=== PATIENT | male | born 1990 | race Caucasian/White ===

== ENCOUNTER 2022-08-04 12:18 | Emergency (ER) | payer BC, SELFPAY ==
--- NOTE | ~2022-08-04 | US_ITS ---
EXAMINATION: US abdomen limited DATE: 08/04/2022 14:04 INDICATION: epigastric/RUQ pain TECHNIQUE: Multiple grayscale and Doppler ultrasound images of limited portions of the abdomen were o btained. COMPARISON: CT abdomen and pelvis 04/19/2017. FINDINGS: Limited visualization of the pancreas due to obscuration by bowel gas. The liver is normal with normal echogenicity and echotexture. No surface nodularity. Normal hepatopetal flow in the main portal vein. The gallbladder is normal with no abnormal wall thickening, pericholecystic fluid or sto pearl. The common bile duct measures 3 mm. There was no sonographic Otto sign. IMPRESSION: Limited visualization of the pancreas, otherwise normal limited abdominal ultrasound findings. Reviewed, dictated and finalized at location K. REPAIRER BUS IMPRESSION: Limited visualization of the pancreas, otherwise normal limited abdominal ultra sound findings.
[2022-08-04 12:23] VITALS: BP 142/83; PULSE 79; RESP 16; TEMP 36.6; O2SAT 100
[2022-08-04 12:37] LABS: Basophils Absolute Auto 0.1 K/mm3 (0.0-0.1); Basophils Percent Auto 0.5 % (0.2-1.2); Eosinophils Absolute Auto 0.1 K/mm3 (0-0.3); Eosinophils Percent Auto 0.7 % (0-4.4); Hematocrit 49.7 % (42.0-52.0); Hemoglobin 16.4 g/dL (14.0-18.0); Immature Granulocyte Absolute 0.03 K/mm3 (0.00-0.031); Immature Granulocyte Percent A 0.2 % (0-0.5); Lymphocytes Absolute Auto 2.34 K/mm3 (0.9-3.2); Lymphocytes Percent Auto 19.1 % (18.3-44.2); Mean Corpuscular Hemoglobin 29.4 pg (26-34); Mean Corpuscular Volume 89.2 fl (80-100); Mean Platelet Volume 8.8 fl (7.4-10.4); Monocytes Absolute Auto 1.1 K/mm3 (0.1-0.6); Monocytes Percent Auto 8.6 % (2.6-8.5); Neutrophils Absolute Auto 8.7 K/mm3 (1.3-6.7); Neutrophils Percent Auto 70.9 % (45.5-73.1); Platelet Count Result 243 k/mm3 (150-375); Red Blood Count 5.57 M/mm3 (4.6-6.20); Red Cell Distribution Width 11.9 % (11.5-14.5); White Blood Count 12.3 K/mm3 (4.5-10.0)
--- NOTE | 2022-08-04 12:43 | ED.ABDPAIN ---
HPI - Abdominal Pain General Chief Complaint: Abdominal Pain Stated Complaint: abd pain, n/v Time Seen by Provider: 08/04/22 12:34 History of Present Illness HPI narrative: Patient is a 32-year-old male who is previously healthy here for evaluation of nausea, vomiting and epigastric discomfort over the past year. The pain is present in his epigastric region and occasionally moves to his right upper quadrant and his back. Patient states that he has had intermittent episodes of these symptoms coming on at random over the past year, lasting for several days at a time before resolving without intervention. He has never seen a doctor for these issues, but today he decided to be evaluated due to longevity of the symptoms. Additionally had an episode of vomiting green bile yesterday which is abnormal for him. He denies any chest pain, shortness of breath, fevers, chills, diarrhea or constipation. No sick contacts. He denies significant greasy or fatty foods in his diet. He does smoke marijuana occasionally but does not believe that his vomiting is related to the marijuana use. Denies any alcohol use or smoking. Related Data Allergies Allergy/AdvReac Type Severity Reaction Status Date / Time No Known Allergies Allergy Mild Verified 04/19/17 09:08 Review of Systems Review of Systems: Gen.: Denies fevers or chills Eyes: Denies eye pain or visual change ENT: Denies congestion Respiratory: Denies shortness of breath or cough CV: Denies chest pain or palpitations GI: Reports abdominal pain, nausea and vomiting : denies burning, urgency, frequency or hematuria Musculoskeletal: Denies back pain or muscle pain Neuro: Denies numbness, tingling, weakness or focal weakness Skin: Denies rash Except as documented, all other systems reviewed and negative Exam Narrative: APPEARANCE: Well appearing, no pain in distress, well-nourished. Head: Normocephalic and atraumatic. EYES: PERRLA/EOMI, conjunctivae clear NOSE: No nasal drainage EARS: External ear normal in appearance THROAT: Oropharynx is clear. Mucous membranes are moist. NECK: Supple. No adenopathy, no masses. RESPIRATORY: Airway patent, respirations nonlabored. Clear to auscultation bilaterally, no rales, rhonchi, wheezing. CARDIOVASCULAR: Regular rate and rhythm without murmurs, rubs, or gallops. ABDOMINAL: Tenderness to palpation in the epigastric region. Normoactive bowel sounds. Soft, nondistended. No rebound tenderness or guarding. MUSCULOSKELETAL: Extremities are warm and well-perfused. Moves all extremities well. No edema. NEURO: Normal speech. No focal neurologic deficits. SKIN: Skin is warm and dry. No rashes. PSYCHIATRIC: Normal affect/mood. Course Vital Signs Vital signs: Vital Signs Temperature 97.8 F 08/04/22 12:23 Pulse Rate 79 08/04/22 12:23 Respiratory Rate 16 08/04/22 12:23 Blood Pressure 142/83 H 08/04/22 12:23 Pulse Oximetry 100 08/04/22 12:23 Oxygen Delivery Room Air 08/04/22 12:23 Temperature 97.8 F 08/04/22 12:23 Pulse Rate 79 08/04/22 12:23 Respiratory Rate 16 08/04/22 12:23 Blood Pressure 142/83 H 08/04/22 12:23 Pulse Oximetry 100 08/04/22 12:23 Oxygen Delivery Room Air 08/04/22 12:23 MDM - Abdominal Pain MDM Narrative Medical decision making narrative: 32-year-old male here for evaluation of intermittent episodes of nausea, vomiting and epigastric pain over the past here, presenting today due to longevity of symptoms. Patient is nontoxic in appearance, has slight epigastric abdominal discomfort on exam with no rebound tenderness or guarding. Vital signs are normal. He has a slight elevation in his white blood cell count to 12.3, may be reactive due to vomiting. LFTs are normal. T bili is normal and lipase is normal. Right upper quadrant ultrasound reveals no gallbladder pathology, pancreas is not entirely visualized, but with a normal lipase this makes pancreatitis very unlikely. UA unremarkable. Patient w
[2022-08-04 12:49] LABS: Alanine Aminotransferase 21 U/L (6-50); Albumin Level 4.6 g/dL (3.5-5.1); Alkaline Phosphatase 64 U/L (38-126); Anion Gap 9 mmol/L (8-16); Aspartate Amino Transferase 24 U/L (17-59); Bilirubin,Total 0.7 mg/dL (0.2-1.3); Blood Urea Nitrogen 21 mg/dL (9-20); Calcium 9.4 mg/dL (8.4-10.2); Carbon Dioxide 31 mmol/L (22-30); Chloride 96 mmol/L (98-107); Estimated CRCL calculation 109 ml/min; Estimated Glomerular Filt Rate > 60; Glucose 103 mg/dL (65-110); Lipase 32 U/L (23-300); Potassium 3.7 mmol/L (3.4-5.0); Sodium 136 mmol/L (137-145)
[2022-08-04 13:28] LABS: Appearance Urine Clear (Clear); Bilirubin Urine Negative (Negative); Blood Urine Negative (Negative); Color Urine Yellow (Yellow); Glucose Urine UA Negative (Negative); Ketones Urine Negative (Negative); Leukocyte Esterase Ur Negative LEU/UL (Negative); Nitrate Urine Negative (Negative); Protein Urine Negative (Negative); Specific Grav Ur 1.025 (1.001-1.035); Urobilinogen Urine 0.2 mg/dL (<2.0); pH Urine 5.5 (5.0-9.0)
[2022-08-04 13:52] LABS: Add Urine Microscopic? NO
[2022-08-04] MEDS: FAMOTIDINE 20 MG/2 ML VIAL IV PUSH (14:04)
[2022-08-04] MEDS: ONDANSETRON INJ 4 MG/2 ML VIAL IV PUSH (14:04)
[2022-08-04] MEDS: LACTATED RINGERS 1,000 ML 999 ML IV CONT (14:10)
== END 2022-08-04 14:52 | disposition home or self-care (01) ==
PROVIDERS: Emergency Medicine; Emergency Provider Physician Assistant
DX: K29.70 Gastritis, unspecified, without bleeding (principal)
CPT/HCPCS: 36415; 76705; 80053; 81003; 83690; 85025; 96361; 96374; 96375; 99284; J2405; J7120

== ENCOUNTER 2022-11-03 12:00 | Emergency (ER) | payer BC, SELFPAY ==
--- NOTE | ~2022-11-03 | XR_ITS ---
Portable chest x-ray Comparison: 04/19/2017 Clinical History: Nausea and vomiting Findings: Lungs are clear, without focal consolidation or pleural effusion. Cardiomediastinal silho uette is stable. Bones and soft tissues are unremarkable. Impression: Normal chest. Reviewed, dictated and finalized at [facility]. Impression: Normal chest.
--- NOTE | ~2022-11-03 | CT_ITS ---
CT of the Abdomen and Pelvis: Indication: Abdominal pain Technique: 2.5 mm axial scans were obtained through the abdomen and pelvis following intravenous adm inistration of 100 cc of Omnipaque 350. Dose reduction technique was used on this scan by utilizing a utomated exposure control and iterative reconstruction technique. The dose-length product (DLP) was 7 59.44 mGy-cm. COMPARISON: 04/19/2017 Findings: Scans through the lung bases are unremarkable. The liver, spleen, pancreas, gallbladder, adrenals and kidneys are within normal limits. No evidence of aortic aneurysm. No lymphadenopathy. No bowel obstruction or bowel wall thickening. There is no evidence to suggest acute appendicitis. Images through the pelvis were performed. Urinary bladder unremarkable. No pelvic mass seen. No ascit es. Impression: No significant abnormalities seen. Reviewed, dictated and finalized at [facility]. Impression: No significant abnormalities seen.
[2022-11-03 12:15] VITALS: BP 132/91; PULSE 78; RESP 16; TEMP 36.1; O2SAT 98
[2022-11-03 12:35] LABS: Basophils Percent Auto 0.3 % (0.2-1.2); Eosinophils Percent Auto 0.2 % (0-4.4); Hematocrit 48.1 % (42.0-52.0); Hemoglobin 16.4 g/dL (14.0-18.0); Immature Granulocyte Absolute 0.04 K/mm3 (0.00-0.031); Immature Granulocyte Percent A 0.3 % (0-0.5); Lymphocytes Absolute Auto 1.91 K/mm3 (0.9-3.2); Lymphocytes Percent Auto 13.6 % (18.3-44.2); Mean Corpuscular HGB Conc 34.1 g/dl (32-36); Mean Corpuscular Hemoglobin 29.2 pg (26-34); Mean Corpuscular Volume 85.6 fl (80-100); Mean Platelet Volume 8.9 fl (7.4-10.4); Monocytes Absolute Auto 0.9 K/mm3 (0.1-0.6); Monocytes Percent Auto 6.4 % (2.6-8.5); Neutrophils Absolute Auto 11.2 K/mm3 (1.3-6.7); Neutrophils Percent Auto 79.2 % (45.5-73.1); Platelet Count Result 301 k/mm3 (150-375); Red Blood Count 5.62 M/mm3 (4.6-6.20); Red Cell Distribution Width 12.4 % (11.5-14.5); White Blood Count 14.1 K/mm3 (4.5-10.0)
[2022-11-03 12:46] LABS: Alanine Aminotransferase 23 U/L (6-50); Alkaline Phosphatase 65 U/L (38-126); Anion Gap 7 mmol/L (8-16); Aspartate Amino Transferase 28 U/L (17-59); Blood Urea Nitrogen 19 mg/dL (9-20); Calcium 9.7 mg/dL (8.4-10.2); Carbon Dioxide 32 mmol/L (22-30); Chloride 96 mmol/L (98-107); Estimated CRCL calculation 123 ml/min; Estimated Glomerular Filt Rate > 60; Glucose 116 mg/dL (65-110); Lipase 24 U/L (23-300); Potassium 3.8 mmol/L (3.4-5.0); Sodium 135 mmol/L (137-145)
[2022-11-03] MEDS: HALOPERIDOL LACTATE 5 MG/ML VIAL 2.5 MG IM (12:47)
[2022-11-03 12:59] LABS: Appearance Urine Clear (Clear); Bacteria Urine None Seen /hpf; Bilirubin Urine Negative (Negative); Blood Urine Negative (Negative); Color Urine Dark Yellow (Yellow); Glucose Urine UA Negative (Negative); Hyaline Casts Urine Present /lpf; Ketones Urine 1+ mg/dL (Negative); Leukocyte Esterase Ur Negative LEU/UL (Negative); Nitrate Urine Negative (Negative); Protein Urine Trace mg/dL (Negative); RBC Urine 0-2 /hpf (0-2); Specific Grav Ur 1.027 (1.001-1.035); Squamous Epithelial Cell Urine Few /hpf (Few); WBC Urine 21-50 /hpf; pH Urine 5.5 (5.0-9.0)
[2022-11-03 13:00] VITALS: BP 128/74; PULSE 76; RESP 16; TEMP 36.8; O2SAT 98
[2022-11-03 13:02] LABS: Add Urine Microscopic? YES
[2022-11-03 14:00] VITALS: BP 124/76; PULSE 78; RESP 16; TEMP 36.7; O2SAT 99
[2022-11-03] MEDS: FAMOTIDINE 20 MG TABLET PO (14:08)
[2022-11-03] MEDS: MAG HYDROX/AL HYDROX/SIMETH 30 ML UDC PO (14:09)
--- NOTE | 2022-11-03 18:26 | ED.NAVMDI ---
HPI - Nausea/Vomiting/Diarrhea General Chief complaint: Nausea/Vomiting/Diarrhea Stated complaint: vomiting x 1 year Time Seen by Provider: 11/03/22 12:21 History of Present Illness HPI Narrative: Patient states that for the past year, he has had multiple episodes of nausea and vomiting that happens about once a month, where he feels the need to vomit uncontrollably, and has crampy uncomfortable pain in the epigastric abdomen. He does state that hot showers help, and he is a daily marijuana user. Has been to the ER before for this and has not seen a GI doctor yet. Related Data Allergies Allergy/AdvReac Type Severity Reaction Status Date / Time No Known Allergies Allergy Mild Verified 04/19/17 09:08 Review of Systems Review of Systems: CONST: No fever. HEENT: No sore throat C/V: No chest pain RESP: No cough GI: Reports abdominal pain, nausea, vomiting : No dysuria M/S: No joint pain. SKIN: No rash. NEURO: [No headache or focal numbness or weakness] PSYCH: [No depression] Exam Narrative: EXAMINATION OF ORGAN SYSTEMS/BODY AREAS: Constitutional: Vital signs per nursing GENERAL:[No acute distress, non-toxic appearing.] HEAD: Normal with no signs of head trauma. EYES: EOMI, conjunctiva normal ENT: Hearing grossly intact LUNGS: Nonlabored breathing. HEART: [Regular rate and rhythm] ABD: [Soft], [nontender to palpation] EXT: Normal range of motion SKIN: [No rashes or lesions.] NEURO: [Alert and oriented x 3. No gross focal sensory or strength deficits.] PSYCH: Normal affect Course Vital Signs Vital signs: Vital Signs Temperature 97.0 F L 11/03/22 12:15 Pulse Rate 78 11/03/22 12:15 Respiratory Rate 16 11/03/22 12:15 Blood Pressure 132/91 H 11/03/22 12:15 Pulse Oximetry 98 11/03/22 12:15 Temperature 98.0 F 11/03/22 14:00 Pulse Rate 78 11/03/22 14:00 Respiratory Rate 16 11/03/22 14:00 Blood Pressure 124/76 11/03/22 14:00 Pulse Oximetry 99 11/03/22 14:00 MDM - Nausea/Vomiting/Diarrhea MDM Narrative Medical decision making narrative: Electronic medical record was reviewed. Patient presented to the ED with complaint of [abdominal pain and vomiting]. Vitals [were within acceptable limits]. Physical exam revealed soft, nontender abdomen. Based on the patient's history and physical exam, my differential includes but is not limited to [gastritis, gastroenteritis, cholecystitis, pancreatitis, hernia, chronic vomiting syndrome, cannabinoid hyperemesis syndrome]. [IV access was established by nursing staff. Patient was given Haldol, Maalox, famotidine]. CBC, BMP, lipase, LFTs, bilirubin and alk phos were obtained. Labs were pertinent for elevated WBCs. Urine labs were ordered per protocol though patient denied any dysuria and there is no bacteria in urine so I have low concern for UTI, patient is monogamous with his in the room. They did request imaging of his abdomen/pelvis, and the also wanted me to get an x-ray of his chest because she states that when he vomits, the sound seems to come from his chest. [CT-abdomen is unremarkable for acute intra-abdominal process.] Chest x-ray interpreted independently by myself does not show any acute abnormality. There were no witnessed episodes of vomiting in the emergency department. They are not complaining of any new abdominal pain. Repeat examination did not show any significant guarding or rebound. No new tenderness. 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 The patient was given strict return precautions, if they are to develop any worsening abdominal pain, vomiting, or blood in the vomit they are to return to the emergency department immediately. Patient verbally acknowledges understanding these directions. [The patient was informed of the above diagnostic test findings.] They will be discharged home [with prescriptions]. They were advised to follow-up with GI in 2 days. The patient feels that this is approp
== END 2022-11-03 14:23 | disposition home or self-care (01) ==
PROVIDERS: Emergency Medicine; Emergency Provider Emergency Medicine
DX: R11.2 Nausea with vomiting, unspecified (principal)
CPT/HCPCS: 36415; 71045; 74177; 80053; 81001; 83690; 85025; 87086; 96372; 99284; A9270; J1630; Q9967

== ENCOUNTER 2023-05-12 16:34 | Emergency (ER) | payer BC, SELFPAY ==
--- NOTE | ~2023-05-12 | CT_ITS ---
EXAMINATION: CT brain wo con INDICATION: Seizure-like activity COMPARISON: None TECHNIQUE: Standard unenhanced head CT. The dose-length product (DLP) was 605.33 mGy-cm. The mA was a djusted according to patient size. Iterative reconstruction technique was employed. FINDINGS: No intracranial hemorrhage, acute infarction, or abnormal mass lesion. The ventricles are n ormal. No abnormal mass effect or midline shift. The elias-white matter differentiation is normal. The basal cisterns are patent. The orbits are normal. The paranasal sinuses, mastoids and calvarium are normal. IMPRESSION: 1. No acute intracranial abnormality. Reviewed, dictated and finalized at location B. NICAL ACCOUNT REPRESENTATIVE
[2023-05-12 16:33] VITALS: BP 118/82; PULSE 104; RESP 20; TEMP 36.8; O2SAT 98
--- NOTE | 2023-05-12 16:47 | ECG_ITS ---
Measurements Intervals [place] Rate: 77 P: 61 UT: 125 QRS: 61 QRSD: 88 T: 36 QT: 345 QTc: 392 Interpretive Statements SINUS RHYTHM INCOMPLETE RIGHT BUNDLE BRANCH BLOCK BORDERLINE ECG NO PREVIOUS ECG AVAILABLE FOR COMPARISON Electronically Signed On 05-13-2023 12:53:49 [employer] by Alec Martines D.O.
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
[2023-05-12] MEDS: TETANUS,DIPHTHERIA,AC PERTUSSIS ADULT (0.5 ML) BOOSTRIX IM (17:16)
[2023-05-12] MEDS: SODIUM CHLORIDE 0.9% IV 1,000 ML 999 ML IV CONT (17:17)
[2023-05-12 17:32] LABS: Basophils Absolute Auto 0.1 K/mm3 (0.0-0.1); Basophils Percent Auto 0.6 % (0.2-1.2); Eosinophils Absolute Auto 0.4 K/mm3 (0-0.3); Eosinophils Percent Auto 3.8 % (0-4.4); Hematocrit 42.5 % (42.0-52.0); Hemoglobin 14.3 g/dL (14.0-18.0); Immature Granulocyte Absolute 0.04 K/mm3 (0.00-0.031); Immature Granulocyte Percent A 0.4 % (0-0.5); Lymphocytes Absolute Auto 1.64 K/mm3 (0.9-3.2); Lymphocytes Percent Auto 17.6 % (18.3-44.2); Mean Corpuscular HGB Conc 33.6 g/dl (32-36); Mean Corpuscular Hemoglobin 29.4 pg (26-34); Mean Corpuscular Volume 87.3 fl (80-100); Mean Platelet Volume 8.7 fl (7.4-10.4); Monocytes Percent Auto 10.3 % (2.6-8.5); Neutrophils Absolute Auto 6.3 K/mm3 (1.3-6.7); Neutrophils Percent Auto 67.3 % (45.5-73.1); Platelet Count Result 260 k/mm3 (150-375); Red Blood Count 4.87 M/mm3 (4.6-6.20); Red Cell Distribution Width 12.7 % (11.5-14.5); White Blood Count 9.3 K/mm3 (4.5-10.0)
[2023-05-12 17:38] LABS: Appearance Urine Clear (Clear); Bacteria Urine None Seen /hpf; Bilirubin Urine Negative (Negative); Blood Urine Negative (Negative); Color Urine Yellow (Yellow); Glucose Urine UA Negative (Negative); Ketones Urine Negative (Negative); Leukocyte Esterase Ur Negative LEU/UL (Negative); Nitrate Urine Negative (Negative); Protein Urine 1+ mg/dL (Negative); RBC Urine 0-2 /hpf (0-2); Squamous Epithelial Cell Urine None seen /hpf (Few); Urobilinogen Urine 0.2 mg/dL (<2.0); WBC Urine 0-5 /hpf
[2023-05-12 17:42] LABS: Anion Gap 4 mmol/L (8-16); Blood Urea Nitrogen 10 mg/dL (9-20); Calcium 9.2 mg/dL (8.4-10.2); Carbon Dioxide 33 mmol/L (22-30); Chloride 100 mmol/L (98-107); Creatine Kinase 332 U/L (55-170); Estimated CRCL calculation 117 ml/min; Estimated Glomerular Filt Rate > 60; Glucose 95 mg/dL (65-110); Potassium 3.1 mmol/L (3.4-5.0); Sodium 137 mmol/L (137-145)
[2023-05-12 17:50] LABS: Amphetamine Screen Urine Negative (Negative); Barbiturate Screen Urine Negative (Negative); Benzodiazepines Screen Urine Positive (Negative); Cannabinoid Screen Urine Positive (Negative); Cocaine Screen Urine Negative (Negative); Methadone Screen Urine Negative (Negative); Opiate Screen Urine Negative (Negative); Phencyclidine Screen Urine Negative (Negative)
[2023-05-12 18:10] LABS: Add Urine Microscopic? YES
[2023-05-12] MEDS: POTASSIUM/PHOSPHORUS/SODIUM 1.5 GM PACKET 1 PACKET PO (19:02)
[2023-05-12 19:21] VITALS: BP 119/85; PULSE 81; RESP 17; O2SAT 98
== END 2023-05-12 19:21 | disposition home or self-care (01) ==
PROVIDERS: Emergency Provider Student in an Organized Health Care Education/Training Program
DX: R56.9 Unspecified convulsions (principal); E87.6 Hypokalemia; R74.8 Abnormal levels of other serum enzymes; F12.90 Cannabis use, unspecified, uncomplicated; S00.03XA Contusion of scalp, initial encounter; S00.01XA Abrasion of scalp, initial encounter; Z23 Encounter for immunization; I45.10 Unspecified right bundle-branch block; W18.39XA Other fall on same level, initial encounter
CPT/HCPCS: 36415; 70450; 80048; 80307; 81001; 82550; 85025; 90471; 90715; 93005; 96360; 99284; A9270; J7030

== ENCOUNTER 2023-06-15 08:59 | Emergency (ER) | payer BC, SELFPAY ==
[2023-06-15] VITALS (8 sets, daily range): BP systolic 115–150; BP diastolic 59–85; PULSE 53–106; RESP 16–18; TEMP 36.4; O2SAT 99–100
--- NOTE | ~2023-06-15 | CT_ITS ---
EXAMINATION: CT abdomen pelvis w con DATE: 06/15/2023 11:57 INDICATION: Abdominal pain. Vomiting. TECHNIQUE: Computed tomography (CT) of the abdomen and pelvis was performed with 100 mL Omnipaque 350 intravenous contrast. Automated exposure control and iterative reconstruction technique were employe d. The dose-length product was 384.45 mGy-cm. COMPARISON: CT abdomen and pelvis 11/03/2022 FINDINGS: The visualized portions of the lung bases are clear without pneumonia or pleural effusion. The heart size is normal. No pericardial effusion. The liver, gallbladder, spleen, pancreas, adrenal glands, and kidneys are normal. There are no dilated loops of bowel. The appendix is normal. There ar e no pathologically enlarged lymph nodes. There is no free intraperitoneal fluid. There is an umbilic al hernia containing fat. There is mild thoracic and lumbar spondylosis. IMPRESSION: 1. Umbilical hernia containing fat. Reviewed, dictated and finalized at location A. CIATE SCIENTIST
[2023-06-15 11:11] LABS: Basophils Absolute Auto 0.1 K/mm3 (0.0-0.1); Basophils Percent Auto 0.3 % (0.2-1.2); Eosinophils Percent Auto 0.1 % (0-4.4); Hematocrit 46.3 % (42.0-52.0); Hemoglobin 15.6 g/dL (14.0-18.0); Immature Granulocyte Absolute 0.07 K/mm3 (0.00-0.031); Immature Granulocyte Percent A 0.4 % (0-0.5); Lymphocytes Absolute Auto 1.18 K/mm3 (0.9-3.2); Lymphocytes Percent Auto 7.2 % (18.3-44.2); Mean Corpuscular HGB Conc 33.7 g/dl (32-36); Mean Corpuscular Hemoglobin 29.1 pg (26-34); Mean Corpuscular Volume 86.4 fl (80-100); Mean Platelet Volume 9.1 fl (7.4-10.4); Monocytes Absolute Auto 0.5 K/mm3 (0.1-0.6); Monocytes Percent Auto 3.3 % (2.6-8.5); Neutrophils Absolute Auto 14.6 K/mm3 (1.3-6.7); Neutrophils Percent Auto 88.7 % (45.5-73.1); Platelet Count Result 311 k/mm3 (150-375); Red Blood Count 5.36 M/mm3 (4.6-6.20); White Blood Count 16.5 K/mm3 (4.5-10.0)
[2023-06-15 11:20] LABS: Alanine Aminotransferase 21 U/L (6-50); Albumin Level 4.8 g/dL (3.5-5.1); Alkaline Phosphatase 68 U/L (38-126); Anion Gap 11 mmol/L (8-16); Aspartate Amino Transferase 27 U/L (17-59); Bilirubin,Total 0.9 mg/dL (0.2-1.3); Blood Urea Nitrogen 23 mg/dL (9-20); Carbon Dioxide 27 mmol/L (22-30); Chloride 100 mmol/L (98-107); Estimated CRCL calculation 118 ml/min; Estimated Glomerular Filt Rate > 60; Glucose 160 mg/dL (65-110); Lipase 40 U/L (23-300); Potassium 3.6 mmol/L (3.4-5.0); Sodium 138 mmol/L (137-145)
[2023-06-15] MEDS: METOCLOPRAMIDE HCL INJ 10 MG/2 ML VIAL IV PUSH (11:22)
[2023-06-15] MEDS: SODIUM CHLORIDE 0.9% IV 1,000 ML 999 ML IV CONT ×2 (11:22→12:53)
[2023-06-15] MEDS: diphenhydrAMINE HCl INJ 50 MG/ML VIAL 25 MG IV PUSH (11:24)
[2023-06-15] MEDS: FAMOTIDINE 20 MG/2 ML VIAL IV PUSH (11:26)
--- NOTE | 2023-06-15 11:38 | ED.NAVMDI ---
HPI - Nausea/Vomiting/Diarrhea General Chief complaint: Nausea/Vomiting/Diarrhea Stated complaint: vomiting Time Seen by Provider: 06/15/23 10:59 Source: patient Mode of arrival: ambulatory Limitations: no limitations History of Present Illness HPI Narrative: This is a 33-year-old male that presents to the emergency department for nausea and vomiting. Associated with mid abdominal discomfort. This has been ongoing over the last couple of days. 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 He took Zofran and and a PPI this morning with little relief. Denies fevers or diarrhea. Related Data Allergies Allergy/AdvReac Type Severity Reaction Status Date / Time No Known Allergies Allergy Mild Verified 05/12/23 17:16 Review of Systems Review of Systems: CONSTITUTIONAL: Denies fever GASTROINTESTINAL: Reports abdominal pain, nausea, vomiting. Denies diarrhea. GENITOURINARY: Denies dysuria or hematuria. All systems reviewed & are unremarkable except as noted in HPI and below PMFSH Past Medical History Medical History (Updated 06/15/23 @ 14:33 by Wilma Fish PA-C) Concussion Surgical History Surgical History (Updated 05/14/23 @ 07:05 by Beatriz Rodriguez MD) History of esophagogastroduodenoscopy (EGD) Social History Social History (Updated 05/14/23 @ 07:08 by Beatriz Rodriguez MD) Alcohol intake: never Substance use type: marijuana Other substance usage details: Denies illicit drugs Living arrangements: with family Additional living arrangements comments: Occupation/Education: occupation Additional occupation/education comments: construction Exam Narrative: GENERAL: Well-appearing, well-nourished, and in no acute distress. HEAD: Normocephalic, atraumatic. EYES: EOMI. ENT: Mucous membranes moist. CHEST: Clear to auscultation. No respiratory distress. No wheezes rales or rhonchi HEART: Regular rate and rhythm. No murmur heard. Normal peripheral pulses. ABDOMEN: Soft, nondistended, normal active bowel sounds. Tender to palpation in the epigastrium, without guarding EXTREMITIES: Normal range of motion. No edema. SKIN: Warm, dry, no rash. NEURO: No focal deficits. Alert and oriented x3. PSYCH: Normal mood and affect Course Course Emergency Course: patient updated on workup. able to tolerate po challenge Vital Signs Vital signs: Vital Signs Temperature 97.6 F 06/15/23 09:04 Pulse Rate 65 06/15/23 09:04 Respiratory Rate 18 06/15/23 09:04 Blood Pressure 150/83 H 06/15/23 09:04 Pulse Oximetry 100 06/15/23 09:04 Oxygen Delivery Room Air 06/15/23 09:04 Temperature 97.6 F 06/15/23 09:04 Pulse Rate 106 H 06/15/23 13:50 Respiratory Rate 18 06/15/23 13:50 Blood Pressure 119/59 L 06/15/23 13:50 Pulse Oximetry 100 06/15/23 13:50 Oxygen Delivery Room Air 06/15/23 09:04 MDM - Nausea/Vomiting/Diarrhea MDM Narrative Medical decision making narrative: Patient presents to the ER for nausea and vomiting. Ongoing over the last several days. Seems to be a recurrent problem for patient. 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 He is afebrile and nontoxic appearing. His vitals are stable. CBC with leukocytosis to 16.5. Metabolic panel without concerning findings. Lipase is normal. UA without evidence of infection. Does show some dehydration. CT abdomen and pelvis without acute findings. Patient hydrated with IV fluids and given antiemetics with improvement. Able to tolerate p.o. challenge. He was instructed to have further follow-up with his sheet metal duct installer helper. He was given warnings to return to the ER Differential Diagnosis Differential diagnosis: Likely food poisoning, gastroenteritis, dehydration and other (gastritis, esophagitis, biliary colic) Lab Data Attestation: I reviewed the patient's lab results. 06/15/23 11:04 06/15/23 11:04 Labs: Lab Results 06/15/23 06/15/23 Range/U
[2023-06-15 12:39] LABS: Appearance Urine Clear (Clear); Bacteria Urine None Seen /hpf; Bilirubin Urine Negative (Negative); Blood Urine Negative (Negative); Color Urine Yellow (Yellow); Glucose Urine UA Negative (Negative); Ketones Urine 2+ mg/dL (Negative); Leukocyte Esterase Ur Negative LEU/UL (Negative); Nitrate Urine Negative (Negative); Non Pathogenic Casts 0-2; Protein Urine 1+ mg/dL (Negative); RBC Urine 0-2 /hpf (0-2); Squamous Epithelial Cell Urine None seen /hpf (Few); Urobilinogen Urine 0.2 mg/dL (<2.0); WBC Urine 0-5 /hpf; pH Urine >=9.0 (5.0-9.0)
[2023-06-15 12:41] LABS: Add Urine Microscopic? YES
[2023-06-15] MEDS: ONDANSETRON INJ 4 MG/2 ML VIAL IV PUSH (12:54)
[2023-06-15] MEDS: DICYCLOMINE HCL INJ 20 MG/2 ML VIAL IM (14:27)
== END 2023-06-15 14:41 | disposition home or self-care (01) ==
PROVIDERS: Emergency Medicine; Emergency Provider Physician Assistant
DX: R11.2 Nausea with vomiting, unspecified (principal)
CPT/HCPCS: 36415; 74177; 80053; 81001; 83690; 85025; 96361; 96372; 96374; 96375; 99284; J0500; J1200; J2405; J2765; J7030; Q9967